=== PATIENT | female | born 1995 | race Caucasian/White ===

== ENCOUNTER 2021-08-17 18:52 | Emergency (ER) | payer OTHER, SELFPAY ==
[2021-08-17 18:56] VITALS: BP 101/66; PULSE 74; RESP 16; TEMP 36.6; O2SAT 100; BMI 24.8
--- NOTE | 2021-08-17 19:04 | ED_ITS ---
HPI - General Adult General Chief complaint: Back Pain/Injury Stated complaint: Lower back pain Time Seen by Provider: 08/17/21 18:59 Source: patient Mode of arrival: EMS Limitations: no limitations History of Present Illness HPI narrative: Patient is a 25-year-old female here for evaluation of lower back pain that is radiating down her legs. She states that it started earlier today. [place] the [place] She bent over and felt a little twinge in her back. The symptoms worsened later in the day when she was at home and once again bent over. She states she feels like she is having tingling in both of her toes in pain in her upper thighs. He did take some ibuprofen without any improvement. No fevers. No specific trauma. No falls. Did try some ibuprofen prior to arrival. Related Data Previous Rx's Medication Instructions Recorded cyclobenzaprine 10 mg tablet 10 mg PO TID PRN muscle spasm #14 08/17/21 tabs hydrocodone 5 mg-acetaminophen 325 1 tab PO Q4-6H PRN pain #14 tabs 08/17/21 mg tablet Allergies Allergy/AdvReac Type Severity Reaction Status Date / Time No Known Drug Allergies Allergy Verified 08/17/21 18:53 Review of Systems Constitutional Constitutional: Reports system reviewed and no additional complaints, except as documented Gastrointestinal Gastrointestinal: Reports system reviewed and no additional complaints, except as documented Genitourinary Genitourinary: Reports system reviewed and no additional complaints, except as documented Musculoskeletal Musculoskeletal: Reports system reviewed and no additional complaints, except as documented Integumentary/Breasts Skin/Breast: Reports system reviewed and no additional complaints, except as documented Neurologic Neurologic: Reports system reviewed and no additional complaints, except as documented Patient History Medical History Low back pain Social History Smoking Status: Unknown if ever smoked Exam Initial Vital Signs Initial Vital Signs: Vital Signs Temperature 97.8 F 08/17/21 18:56 Pulse Rate 74 08/17/21 18:56 Respiratory Rate 16 08/17/21 18:56 Blood Pressure 101/66 08/17/21 18:56 Pulse Oximetry 100 08/17/21 18:56 Oxygen Delivery Method 08/17/21 18:56 Const General: cooperative and comfortable HENMT Head: normal to inspection and normocephalic Resp Effort & Inspection: normal respiratory effort Cardio Rate: regular rate Back/Spine/Pelvis Back: normal to inspection Skin General: no rashes or lesions noted Extrem Other: Patient reports tingling to light touch in both of her lower extremities but it is equal bilateral. Course Orders Ordered: Discontinued Medications Hydrocodone Bitart/Acetaminophen (Hydrocodone/Acet 5/325 Prepack) 1 bottle MISC SEEINSTR ONE Stop: 08/17/21 20:44 Last Admin: 08/17/21 20:58 Dose: 1 bottle Documented By: EH Ketorolac Tromethamine (Ketorolac 30 Mg/Ml Vial) 30 mg IM NOW ONE Stop: 08/17/21 19:05 Last Admin: 08/17/21 19:20 Dose: Not Given Documented By: ANNE-MARIE Morphine Sulfate (Morphine 4 Mg/Ml Inj) 4 mg IM NOW ONE Stop: 08/17/21 19:05 Last Admin: 08/17/21 19:20 Dose: 4 mg Documented By: ANNE-MARIE Vital Signs Vital signs: Vital Signs - 8 hr 08/17/21 18:56 08/17/21 20:49 08/17/21 21:08 Temperature 97.8 F Pulse Rate 74 70 72 Respiratory Rate 16 16 16 Blood Pressure 101/66 104/59 L 110/60 Pulse Oximetry 100 99 99 Oxygen Delivery Method Room Air Room Air Room Air Medical Decision Making MDM Narrative Medical decision making narrative: Some improvement of symptoms after treatment here in the ER. No indication for radiologic studies. Low suspicion for fracture/cauda equina/hematoma or abscess. Was sent home with symptom treatment. She was given return precautions and follow-up instructions. She expressed understanding and agreement. Discharge Plan Departure Patient Disposition: Home Clinical Impression: Strain of lumbar region Instructions: DI for Low Back Pain Activity Restrictions/Additional Instructions: You can take the Flexeril that you are to have at home as needed. Use the pain medication is needed as well. I also recommend that you continue with anti- inflammatories such as the Motrin/ibuprofen. Be sure you are taking this with food. Also recommend that you stay active. Contact your primary doctor for a follow-up. Return to the emergency department for any new or worsening symptoms. Prescriptions: New hydrocodone-acetaminophen 5-325 mg tablet 1 tab PO Q4-6H PRN (Reason: pain) Qty: 14 0RF cyclobenzaprine 10 mg tablet 10 mg PO TID PRN (Reason: muscle spasm) Qty: 14 0RF Visit Report Forms: Patient Portal/API
[2021-08-17] MEDS: MORPHINE 4 MG/ML INJ IM (19:20)
[2021-08-17 20:49] VITALS: BP 104/59; PULSE 70; RESP 16; O2SAT 99
[2021-08-17] MEDS: HYDROCODONE/ACET 5/325 PREPACK 1 BOTTLE MISC (20:58)
[2021-08-17 21:08] VITALS: BP 110/60; PULSE 72; RESP 16; O2SAT 99
== END 2021-08-17 21:10 | disposition home or self-care (01) ==
PROVIDERS: Emergency Provider Emergency Medicine
DX: S39.012A Strain of muscle, fascia and tendon of lower back, initial encounter (principal)
CPT/HCPCS: 96372; 99283; J2270

== ENCOUNTER → 2021-08-18 15:29 | Outpatient (CLI) | payer OTHER, SELFPAY ==
--- NOTE | 2021-08-18 15:37 | DI.RAD.S_ITS ---
PROCEDURE: XR LUMBAR SPINE 2-3V INDICATIONS: acute on chronic injury yest, assess for disc dz TECHNIQUE: 3 views of the lumbar spine were acquired. COMPARISON: None. FINDINGS: Bones: 5 [id number] vertebrae are present. There is normal bony alignment. No vertebral body compression fractures. No suspicious bony lesions. Soft tissues: Overlying bowel gas pattern is normal. No suspicious soft tissue calcifications. IMPRESSION: No evidence acute bony abnormality of the lumbar spine. If clinical suspicion and/or symptoms persist, further assessment with repeat plain films, or advanced imaging (e.g., CT, MRI, or bone scan) may be helpful for further assessment. Dictated by: Roosevelt Rinaldi M.D. on 08/18/2021 at 16:54 Approved by: Roosevelt Rinaldi M.D. on 08/18/2021 at 16:55
== END ==
PROVIDERS: Referring Provider Pediatrics; Visit Provider Pediatrics
DX: M54.30 Sciatica, unspecified side (principal); M54.50 Low back pain, unspecified
CPT/HCPCS: 72100

== ENCOUNTER → 2021-12-14 | Outpatient (CLI) | payer OTHER, SELFPAY ==
--- NOTE | 2021-12-14 | DI.MRI.S_ITS ---
PROCEDURE: MR ABDOMEN WO/W CON INDICATIONS: LIVER LESION TECHNIQUE: Coronal HASTE, axial 2D FLASH in- and [id number]; axial breath-hold T2 FSE. Dynamic axial VIBE during the administration of contrast; post-contrast coronal VIBE or 2D FLASH with fat saturation from the hepatic dome to the iliac crests. Optional diffusion weighted imaging and ADC may be performed. COMPARISON: A prior report is available from outside MRI dated 12/28/2020. FINDINGS: Image quality: Motion degraded. There is also metallic artifact posteriorly causing in homogeneity in fat saturation limiting evaluation of the posterior liver and liver dome. There is also extensive gas artifact adjacent to the area of interest near the hepatic hilum. Lung bases: No basal effusion. Lungs are not well assessed on MRI. Solid organs: There is a T2 hyperintense lesion on image 4/19 measuring 11 by 11 millimeters in segment 3. It is unclear whether this corresponds any of the lesions reported on outside imaging from 2020. Imaging limitations as above render parts of the liver, especially near the hilum and posterior and dome aspects essentially nondiagnostic. Gallbladder is under distended. There is no biliary ductal dilation. No pancreatic ductal dilation no splenomegaly. No discrete adrenal nodule. No hydronephrosis. Nodes and vessels: No abdominal aortic aneurysm. No pathologic adenopathy by size criteria. The portal vein is patent. Bowel and peritoneum: Stomach and proximal duodenum are mildly distended with gas, causing extensive susceptibility artifact, without overt small bowel obstruction. No pathologic ascites. Bones and soft tissues: No acute or suspicious osseous abnormality. IMPRESSION: There is a T2 hyperintense lesion in hepatic segment 3. This is a markedly limited MRI due to multiple technical issues described above. Previously described focal nodular hyperplasia is not definitively identified in segment 8. Only the comparison report from 2020 is available. Comparison images are not available at this time. No acute abdominal pelvic pathology. Dictated by: Berto Tapia M.D. on 01/03/2022 at 9:32 Approved by: Berto Tapia M.D. on 01/03/2022 at 9:49
== END ==
LOC: MRI 13:02
PROVIDERS: PCP Registered Nurse Diabetes Educator; Referring Provider Internal Medicine Gastroenterology; Visit Provider Internal Medicine Gastroenterology
DX: K76.9 Liver disease, unspecified (principal)
CPT/HCPCS: 74183; A9579

== ENCOUNTER → 2022-04-25 16:04 | Outpatient (CLI) | payer OTHER, SELFPAY ==
--- NOTE | 2022-04-25 16:06 | DI.MRI.S_ITS ---
PROCEDURE: MR CERVICAL SPINE WO CON INDICATIONS: eval neck pain, BUE radiculopathy TECHNIQUE: Noncontrast sagittal T1 spin echo and T2 fast spin echo, sagittal STIR, foraminal oblique sagittal T2 fast spin echo, and axial gradient echo or T2 fast spin echo through the cervical spine. COMPARISON: None. FINDINGS: Image quality: Excellent. Alignment and Curvature: There is normal bony alignment. Bone Marrow: Marrow demonstrates normal overall signal. Spinal Cord: Visualized spinal cord has normal size and signal. No cerebellar tonsillar herniation. Paraspinous Soft Tissues: No paravertebral masses. Prevertebral soft tissues are normal in thickness. C1-C2: Mild to moderate degenerative changes are present. C2-C3: Normal appearance. C3-C4: Mild left foraminal stenosis. No right foraminal narrowing. No canal stenosis. C4-C5: Normal appearance. C5-C6: Moderate to severe bilateral foraminal stenosis. C6-C7: Normal appearance. C7-T1: Normal appearance. IMPRESSION: 1. Mild to moderate degenerative changes at C1-2. 2. Moderate to severe bilateral foraminal narrowing at C5-6. 3. No canal stenosis or cord signal abnormalities of the lumbar spine. Dictated by: Nisa Watson M.D. on 04/25/2022 at 17:03 Approved by: Nisa Watson M.D. on 04/25/2022 at 17:07
== END ==
PROVIDERS: PCP Registered Nurse Diabetes Educator; Referring Provider Registered Nurse Diabetes Educator; Visit Provider Registered Nurse Diabetes Educator
DX: M47.812 Spondylosis without myelopathy or radiculopathy, cervical region (principal); M48.02 Spinal stenosis, cervical region; M54.2 Cervicalgia; M54.10 Radiculopathy, site unspecified
CPT/HCPCS: 72141

== ENCOUNTER → 2022-05-16 15:03 | Outpatient (CLI) | payer OTHER, SELFPAY ==
--- NOTE | 2022-05-16 15:04 | DI.MRI.S_ITS ---
PROCEDURE: MR ABDOMEN WO/W CON INDICATIONS: Liver disease, unspecified TECHNIQUE: Coronal HASTE, axial 2D FLASH in- and [id number]; axial breath-hold T2 FSE. Dynamic axial VIBE during the administration of contrast; post-contrast coronal VIBE or 2D FLASH with fat saturation from the hepatic dome to the iliac crests. Optional diffusion weighted imaging and ADC may be performed. COMPARISON: [facility], MR, MR ABDOMEN WO/W CON, 12/14/2021, 13:39. MRI report of 12/28/2020. FINDINGS: Image quality: Excellent. Lung bases: No basal pleural effusions. Heart size is normal. Solid organs: Liver is normal in size and enhancement. Gallbladder is unremarkable. Biliary system is non dilated. Pancreas is normal in morphology. Spleen is normal in size and enhancement. No adrenal nodules. Both kidneys demonstrate normal size and enhancement, without hydronephrosis. Nodes and vessels: No retroperitoneal or mesenteric adenopathy by size criteria. Aorta and inferior vena cava are normal in size. Bowel and peritoneum: Unenhanced bowel loops are normal in caliber. No free fluid. Bones and soft tissues: No ventral hernias. Bone marrow is normal in overall signal. IMPRESSION: No liver lesion on today's exam. Previously described segment 3 lesion is not seen, nor confirmed with diffusion-weighted sequences. Previously described liver lesion at the dome is not visualized. Dictated by: Curt Osorio M.D. on 05/17/2022 at 8:58 Approved by: Curt Osorio M.D. on 05/17/2022 at 9:07
== END ==
PROVIDERS: PCP Registered Nurse Diabetes Educator; Referring Provider Internal Medicine Gastroenterology; Visit Provider Internal Medicine Gastroenterology
DX: K76.9 Liver disease, unspecified (principal)
CPT/HCPCS: 74183

== ENCOUNTER → 2022-09-28 12:08 | Outpatient (CLI) | payer OTHER, SELFPAY | PROVIDERS: Family Provider Registered Nurse Diabetes Educator; PCP Registered Nurse Diabetes Educator; Referring Provider Physical Medicine & Rehabilitation; Visit Provider Physical Medicine & Rehabilitation | DX: M54.12 Radiculopathy, cervical region (principal); R20.2 Paresthesia of skin | CPT/HCPCS: 95886; 95911 ==

== ENCOUNTER → 2023-02-16 15:12 | Outpatient (CLI) | payer OTHER, SELFPAY ==
--- NOTE | 2023-02-16 15:13 | DI.US.S_ITS ---
PROCEDURE: US OB <= 14 WEEKS FETUS INDICATIONS: Dating and viability OUTSIDE/PRIOR DATING DATA: Last menstrual period (LMP): 12/21/2022 LMP-based estimated date of delivery (JACKY): 09/27/2023 First dating scan (date and location): 02/16/2023 Estimated date of delivery (JACKY) from first dating scan: Not applicable TECHNIQUE: Real-time scanning was performed of the fetus and maternal pelvic organs, with image documentation. Endovaginal scanning was also performed to better visualize the fetus and maternal ovaries. COMPARISON: None. FINDINGS: Embryo: Single intrauterine gestational sac is seen with fetus and yolk sac noted. [place]-rump length measures 1.7 cm. Estimated gestational age based on current study is 8 weeks, 1 day. Heart rate: 168 beats per minute. Maternal organs: Ovaries are not well seen on this study. No gross adnexal mass. IMPRESSION: 1. Single live intrauterine gestation with fetus and yolk sac seen. Estimated gestational age based on current study is 8 weeks, 1 day. heart rate is 168 beats per minute. We strive to produce accurate, complete, and clear reports of imaging services. To assist us in improving patient care, this report was composed using standard report templates and voice recognition software. Therefore, it may contain abnormal punctuation, insertions and/or omissions. Occasional wrong-word or sound-alike substitutions may occur. Though we review the report and make efforts to correct it, we do recommend that the report be read carefully in proper context to recognize any text inaccuracies. Dictated by: Rodney Ochoa M.D. on 02/16/2023 at 16:58 Approved by: Rodney Ochoa M.D. on 02/16/2023 at 16:59
== END ==
PROVIDERS: Family Provider Registered Nurse Diabetes Educator; PCP Registered Nurse Diabetes Educator; Referring Provider Obstetrics & Gynecology; Visit Provider Obstetrics & Gynecology
DX: Z34.01 Encounter for supervision of normal first pregnancy, first trimester (principal); Z3A.08 8 weeks gestation of pregnancy
CPT/HCPCS: 76801

== ENCOUNTER → 2023-03-21 10:28 | Outpatient (CLI) | payer OTHER, SELFPAY ==
[2023-03-21 14:03] LABS: Urine Chlamydia NOT DETECTED; Urine N gonorrhoeae NOT DETECTED
== END ==
PROVIDERS: Family Provider Registered Nurse Diabetes Educator; PCP Registered Nurse Diabetes Educator; Visit Provider Obstetrics & Gynecology
DX: Z34.01 Encounter for supervision of normal first pregnancy, first trimester (principal); Z3A.12 12 weeks gestation of pregnancy
CPT/HCPCS: 87491; 87591

== ENCOUNTER → 2023-03-21 10:46 | Outpatient (CLI) | payer OTHER, SELFPAY ==
[2023-03-21 11:07] LABS: Add Manual Diff / Slide Review NO; Basophils Absolute Auto 100 /uL (0-100); Basophils Percent Auto 0.7 % (0-2); Eosinophils Absolute Auto 100 /uL (0-450); Hematocrit 39.6 % (36-46); Hemoglobin 13.6 g/dL (12.0-16.0); Lymphocytes Absolute Auto 2200 /uL (1100-4500); Lymphocytes Percent Auto 19.2 % (25-40); Mean Corpuscular HGB Conc 34.3 % (30-36); Mean Corpuscular Hemoglobin 29.1 PG (26-34); Mean Corpuscular Volume 84.7 fL (80-100); Monocytes Absolute Auto 900 /uL (0-900); Monocytes Percent Auto 7.5 % (3-14); Neutrophils Absolute Auto 8300 /uL (1500-7000); Neutrophils Percent Auto 71.6 % (50-75); Platelet Count 301 X10^3/uL (150-400); Red Blood Cell Count 4.67 X10^6/uL (4.0-5.2); Red Cell Distribution Width 12.3 % (11.6-14.8); White Blood Cell Count 11.6 X10^3/uL (4.5-11.0)
[2023-03-22 07:34] LABS: RPR Screen Non Reactive (Non Reactive)
[2023-03-22 10:30] LABS: Varicella IgG Antibody 226 index (Immune >165)
[2023-03-22 16:40] LABS: Hepatitis B Surface Antigen NEGATIVE s/c (NEGATIVE); Rubella Antibody IgG 47.7 IU/mL (>15)
[2023-03-22 16:52] LABS: HIV 1 & 2 Ab/Ag 4th Gen Combo NEGATIVE (NEGATIVE)
[2023-03-22 17:15] LABS: Hep C Virus Ab w/Reflex Quant NEGATIVE s/c (NEGATIVE)
== END ==
LOC: LAB 10:46
PROVIDERS: Family Provider Registered Nurse Diabetes Educator; PCP Registered Nurse Diabetes Educator; Referring Provider Obstetrics & Gynecology; Visit Provider Obstetrics & Gynecology
DX: Z34.01 Encounter for supervision of normal first pregnancy, first trimester (principal); Z3A.12 12 weeks gestation of pregnancy
CPT/HCPCS: 36415; 80055; 86787; 86803; 86850; 86900; 86901; 87389; 87491; 87591

== ENCOUNTER → 2023-04-20 15:20 | Outpatient (CLI) | payer OTHER, SELFPAY ==
[2023-04-24 22:46] LABS: AFP Value 42.7 ng/mL (.); Gest Age on Col Date 17.1 weeks (.); Insulin Dep Diabetes No (.); OSBR Risk 1IN 6110 (.); Results Report (.); Test Results *Screen Negative* (.)
== END ==
PROVIDERS: Family Provider Registered Nurse Diabetes Educator; PCP Registered Nurse Diabetes Educator; Referring Provider Obstetrics & Gynecology; Visit Provider Obstetrics & Gynecology
DX: Z34.02 Encounter for supervision of normal first pregnancy, second trimester (principal); Z3A.17 17 weeks gestation of pregnancy
CPT/HCPCS: 36415; 82105

== ENCOUNTER → 2023-05-11 14:21 | Outpatient (CLI) | payer OTHER, SELFPAY ==
--- NOTE | 2023-05-11 14:23 | DI.US.S_ITS ---
PROCEDURE: US OB >= 14 WEEKS FETUS INDICATIONS: 20 wk anatomy scan OUTSIDE/PRIOR DATING DATA: Last menstrual period (LMP): 12/21/2022. LMP-based estimated date of delivery (JACKY): 09/27/2023. First dating scan (date and location): 02/16/2023. Estimated date of delivery (JACKY) from first dating scan: 09/27/2023. The calculations are made using the ultrasound/clinical JACKY of 09/27/2023. TECHNIQUE: Real-time scanning was performed of the fetus, with image documentation and biometric measurements. Endovaginal scanning: No COMPARISON: None. FINDINGS: General: A single living intrauterine gestation is present. Presentation: Variable. Placenta: Placental position is posterior , without previa. Amniotic fluid index: 13.2 cm, normal range is 5-24 cm. Single deepest vertical pocket is 3.9 cm. heart rate: 126 beats per minute. Maternal cervical canal: 3.7 cm long. Normal lower limit is 2.5 cm. biometrics: Biparietal diameter: 5 cm, 21 weeks and 0 days Head circumference: 17.5 cm, 20 weeks and 0 days Abdominal circumference: 16 cm, 21 weeks and 1 day Femur length: 3.2 cm, 20 weeks and 0 days Clinically estimated gestational age: 20 weeks and 1 day Composite gestational age from present scan: 20 weeks and 4 days Estimated weight and percentile: 363 grams, 70th percentile Anatomic survey: Neuro: Ventricles are non-dilated at less than 10 mm. Cisterna magna is normal at 3-11 mm. Cerebellum is normal in size and morphology. Nuchal skin fold: Normal at less than 6 mm between 14-21 weeks gestational age. Face: Nose and lips, facial profile are normal. Spine: No evidence for spina bifida. Heart: 4-chambered heart is present. The ventricular outflow tracts are not well seen. Diaphragm: Diaphragm is intact. Stomach: Left-sided stomach is present. Kidneys: No hydronephrosis. Normal is less than 5 mm in 2nd trimester, less than 7 mm in 3rd trimester. Cord: 3-vessel cord has orthotopic insertion. Bladder: Normal in size. Extremities: All 4 extremities identified. IMPRESSION: 1. Single living intrauterine gestation with estimated gestational age of 20 weeks and 4 days from the present scan. 2. Normal interval growth. 3. Ventricular outflow tracts are not well seen. Remainder of the anatomy scan is within normal limits. Attention on follow-up. Dictated by: David Fox M.D. on 05/12/2023 at 10:58 Approved by: David Fox M.D. on 05/12/2023 at 11:18
== END ==
LOC: US 14:22
PROVIDERS: Family Provider Registered Nurse Diabetes Educator; PCP Registered Nurse Diabetes Educator; Referring Provider Obstetrics & Gynecology; Visit Provider Obstetrics & Gynecology
DX: Z34.02 Encounter for supervision of normal first pregnancy, second trimester (principal); Z3A.20 20 weeks gestation of pregnancy
CPT/HCPCS: 76811

== ENCOUNTER → 2023-05-30 13:22 | Outpatient (CLI) | payer OTHER, SELFPAY ==
--- NOTE | 2023-05-30 13:23 | DI.US.S_ITS ---
PROCEDURE: US OB FOLLOW UP INDICATIONS: Ventricular outflow tracts not well seen on first scan OUTSIDE/PRIOR DATING DATA: Last menstrual period (LMP): 12/21/2022. LMP-based estimated date of delivery (JACKY): 09/27/2023. First dating scan (date and location): 02/16/2023, [facility]. Estimated date of delivery (JACKY) from first dating scan: 09/27/2023. The calculations are made using the working JACKY of 09/27/2023. TECHNIQUE: Real-time scanning was performed of the fetus, with image documentation. Endovaginal scanning: Not performed COMPARISON: [facility], US, US OB >= 14 WEEKS FETUS, 05/11/2023, 14:45. Ob ultrasound 02/14/2023, 05/23/2023. FINDINGS: A single living intrauterine gestation is present. Presentation: Vertex. Placenta: Placental position is posterior, without previa. Amniotic fluid index: 17.7 cm, normal range is 5-24 cm. Single deepest vertical pocket is 7.0 cm. heart rate: 152 beats per minute. Maternal cervical canal: 3.3 cm long. Normal lower limit is 2.5 cm. Clinically estimated gestational age: 22 weeks, 6 days Four-chamber view of the heart is normal. RVOT and LVOT are normal in appearance. IMPRESSION: 1. Alberto living intrauterine at 22 weeks 6 days based on prior dating. 2. Normal placenta and amniotic fluid. 3. Normal normal appearance of the heart. Four-chamber view and cardiac outflow tracks appear normal. Approved by: Bill Velásquez M.D. on 06/06/2023 at 12:49
== END ==
LOC: US 13:22
PROVIDERS: Family Provider Registered Nurse Diabetes Educator; PCP Registered Nurse Diabetes Educator; Referring Provider Obstetrics & Gynecology; Visit Provider Obstetrics & Gynecology
DX: Z36.2 Encounter for other antenatal screening follow-up (principal); Z3A.22 22 weeks gestation of pregnancy
CPT/HCPCS: 76816

== ENCOUNTER → 2023-06-01 15:19 | Outpatient (CLI) | payer OTHER, SELFPAY ==
[2023-06-04 13:58] LABS: Candida species Negative (Negative); Gardnerella vaginalis Negative (Negative); Trichomoas vaginalis Negative (Negative)
== END ==
PROVIDERS: Family Provider Registered Nurse Diabetes Educator; PCP Registered Nurse Diabetes Educator; Visit Provider Obstetrics & Gynecology
DX: N89.8 Other specified noninflammatory disorders of vagina (principal)
CPT/HCPCS: 87480; 87510; 87660

== ENCOUNTER → 2023-06-20 11:45 | Outpatient (CLI) | payer OTHER, SELFPAY ==
[2023-06-20 13:23] LABS: Hematocrit 36.4 % (36-46); Hemoglobin 12.4 g/dL (12.0-16.0)
[2023-06-20 13:54] LABS: GTT (PREG) 1 Hour PP 50gm Dose 145 mg/dL (76-139)
== END ==
PROVIDERS: Family Provider Registered Nurse Diabetes Educator; PCP Registered Nurse Diabetes Educator; Referring Provider Obstetrics & Gynecology; Visit Provider Obstetrics & Gynecology
DX: Z34.02 Encounter for supervision of normal first pregnancy, second trimester (principal); Z3A.26 26 weeks gestation of pregnancy
CPT/HCPCS: 36415; 82950; 85014; 85018

== ENCOUNTER → 2023-06-25 09:58 | Outpatient (CLI) | payer OTHER, SELFPAY ==
[2023-06-25 12:00] LABS: Glucose Fasting Gestational 80 mg/dL (76-95)
[2023-06-25 12:08] LABS: Glucose 1 Hour Gest 143 mg/dL (76-180)
[2023-06-25 13:21] LABS: Glucose 2 Hour Gest 117 mg/dL (76-155)
[2023-06-25 13:34] LABS: Glucose Tol Interp,Gestational INTERPRETATION
[2023-06-25 14:30] LABS: Glucose 3 Hour Gest 93 mg/dL (76-140)
== END ==
PROVIDERS: Family Provider Registered Nurse Diabetes Educator; PCP Registered Nurse Diabetes Educator; Referring Provider Obstetrics & Gynecology; Visit Provider Obstetrics & Gynecology
DX: O99.810 Abnormal glucose complicating pregnancy (principal)
CPT/HCPCS: 82951; 82952

== ENCOUNTER 2023-07-27 19:22 | Outpatient (CLI) | payer OTHER, SELFPAY ==
--- NOTE | 2023-07-27 20:02 | PM.OBTRLD ---
Visit Information Visit Information Date of evaluation: 07/27/23 Primary OB Provider: Gentry Ramirez On-call OB Provider: Yandel Mason Reason for Evaluation: Yes other Comments/Additional reasons for admission: 27yo G1 at GA 31+1 weeks presenting with concern for decreased movement. Noticed baby moving less than normal today. Drank water and juice, ate a snack, laid down and performed kick counts. Noted a total of 8 movements over the course of 3 hours. Called after hours line and was advised to present for further evaluation. Denies vaginal bleeding, leakage of fluid, abdominal/pelvic pain, contractions. reportedly uncomplicated thus far. Home medications on chart review include PNV, sertraline, omeprazole. Genetic screening normal/low risk, 1h GTT normal. [facility] Medical History Squamous cell carcinoma Irregular menstrual cycle Irritable bowel syndrome Liver nodule Paresthesia of upper extremity Back pain, lumbosacral Low back pain Surgical History [place] teeth extracted Anesthesia Giant cell tumor (~2019) History of laparoscopy (~03/07/20) Family History Father Esophageal cancer Aquino's esophagus Mother Breast cancer DVT (deep venous thrombosis) Grandmother Stroke Grandmother Breast cancer Grandfather Diabetes mellitus History of heart disease Hx of CABG Family/Other Breast cancer Social History marital status: number of children: 0 household members: spouse lives independently: Yes caregiver/support person: No housing: condominium ([facility]) pets and animals: Yes (dogs) education level: vocational occupational status: employed 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 ) special michelle needs: No travel history: recent (domestic only) seatbelt use: always water heater temp set < 120 deg: Yes working smoke detector in home: Yes fire extinguisher in home: Yes carbon monox detector in home: Yes firearms in home: No do you feel safe at home: Yes Smoking Status: Never smoker second hand exposure: No alcohol intake: former (occasionally when not ) substance use type: does not use during the past year weight has: remained stable well-balanced diet: daily or most days daily servings fruits/ve-4 caffeine: Yes (rarely) Type(s) of exercise: walking frequency: 3-4 times per week Review of Systems Review of Systems ROS: Yes All systems reviewed with the patient and are negative except as otherwise documented Evaluation Evaluation Baseline heart rate: 140 Variability: Moderate (11-25) monitor accelerations: Present Monitor Decelerations: Absent Category of Tracing: Reactive Status: Category l Diagnosis, Plan/Disposition Final Diagnosis (1) Decreased movement: Status: Acute (2) with 31 completed weeks gestation: Status: Acute Plan/Disposition Plan: NST reactive with cat 1 FHT, mother now feeling baby move normally. Discharge home with return precautions for decreased movement, bleeding, signs/sxs labor. Follow-up with primary OB as scheduled. OB Disposition: home
== END 2023-07-27 20:00 | disposition home or self-care (01) ==
LOC: OB 07-31 08:12
PROVIDERS: Family Provider Registered Nurse Diabetes Educator; PCP Registered Nurse Diabetes Educator; Referring Provider Family Medicine; Visit Provider Family Medicine
DX: O36.8130 Decreased fetal movements, third trimester, not applicable or unspecified (principal); Z3A.31 31 weeks gestation of pregnancy
CPT/HCPCS: 59025; G0378; G0379

== ENCOUNTER → 2023-08-08 11:35 | Outpatient (CLI) | payer OTHER, SELFPAY ==
[2023-08-08 12:50] LABS: Alanine Aminotransferase 16 IU/L (<35); Albumin 3.6 g/dL (3.5-5.0); Albumin Globulin Ratio 1.3 (1.0-2.8); Alkaline Phosphatase 99 U/L (38-126); Aspartate Aminotransferase 23 IU/L (14-36); BUN Creatinine Ratio 18.2 (6-22); Bilirubin Total 0.4 mg/dL (0.2-1.3); Blood Urea Nitrogen 10 mg/dL (7-17); Calcium 9.1 mg/dL (8.4-10.2); Carbon Dioxide 24 mmol/L (22-32); Chloride 106 mmol/L (98-107); Estimated Glomerular Filt Rate > 60 mL/min (>60); Globulin 2.7 g/dL (1.7-4.1); Glucose 70 mg/dL (70-100); HEMOLYSIS < 15 (0-50); Potassium 4.6 mmol/L (3.4-5.1); Sodium 133 mmol/L (137-145); Total Protein 6.3 g/dL (6.3-8.2)
== END ==
PROVIDERS: Family Provider Registered Nurse Diabetes Educator; PCP Registered Nurse Diabetes Educator; Referring Provider Obstetrics & Gynecology; Visit Provider Obstetrics & Gynecology
DX: O99.713 Diseases of the skin and subcutaneous tissue complicating pregnancy, third trimester (principal); L29.9 Pruritus, unspecified
CPT/HCPCS: 36415; 80053; 82239

== ENCOUNTER 2023-08-27 10:18 | Observation (INO) | payer OTHER, SELFPAY ==
[2023-08-27 11:27] LABS: Appearance Urine UA CLEAR; Bilirubin Urine UA NEGATIVE (NEGATIVE); Color Urine UA YELLOW; Glucose Urine UA NEGATIVE (Negative); Ketones Urine UA NEGATIVE (NEGATIVE); Leukocyte Esterase Urine UA TRACE (NEGATIVE); Nitrite Urine UA NEGATIVE (Negative); Occult Blood Urine UA NEGATIVE (Negative); Protein Urine UA NEGATIVE (Negative); Urobilinogen Urine UA 0.2 E.U./dL (0.2)
[2023-08-27 12:04] LABS: Bacteria Urine Occasional (0-1); Culture Indicated Urine Cult Not Indicated; RBC Urine None Seen (0-5/HPF); Squamous Epithelial Cell Urine 1-5 /HPF (0-5/HPF); Urine Volume 10mL (spun); WBC Urine 0-1/HPF (0-5/HPF)
--- NOTE | 2023-08-27 12:39 | DI.US.S_ITS ---
PROCEDURE: US OB LIMITED INDICATIONS: cramping OUTSIDE/PRIOR DATING DATA: Last menstrual period (LMP): 12/21/2022. LMP-based estimated date of delivery (JACKY): 09/27/2023. The calculations are made using the clinical JACKY of 09/27/2023. TECHNIQUE: Real-time scanning was performed of the fetus, with image documentation. Endovaginal scanning: Not performed COMPARISON: None. FINDINGS: A single living intrauterine gestation is present. Presentation: Vertex. Placenta: Placental position is posterior, without previa. Amniotic fluid index: 18.7 cm, normal range is 5-24 cm. Single deepest vertical pocket is 6.3 cm. heart rate: 160 beats per minute. Maternal cervical canal: 5.8 cm long. Normal lower limit is 2.5 cm. Clinically estimated gestational age: 35 weeks 4 days. IMPRESSION: Single living intrauterine at 35 weeks 4 days, JACKY of 09/27/2023. Cervix measures 5.8 centimeter, and is closed. AUBREE of 18.7 centimeter. Dictated by: Curt Osorio M.D. on 08/27/2023 at 13:19 Approved by: Curt Osorio M.D. on 08/27/2023 at 13:21
--- NOTE | 2023-08-27 12:55 | P.TNLD_ITS ---
Visit Information Visit Information Date of evaluation: 08/27/23 Primary OB Provider: Gentry Ramirez Comments/Additional reasons for admission: 27yo at 35w4d here for lower abdominal cramping. The pt reports cramping for the last 3 days, relatively consistently. They are not getting stronger. She denies any vaginal bleeding or LOF. She is feeling her baby move regularly. [facility] Medical History (Updated 08/27/23 @ 12:57 by Ofe Barr MD) Squamous cell carcinoma Irregular menstrual cycle Irritable bowel syndrome Liver nodule Paresthesia of upper extremity Back pain, lumbosacral Low back pain Surgical History [place] teeth extracted Anesthesia Giant cell tumor (~2019) History of laparoscopy (~03/07/20) Family History Father Esophageal cancer Aquino's esophagus Mother Breast cancer DVT (deep venous thrombosis) Grandmother Stroke Grandmother Breast cancer Grandfather Diabetes mellitus History of heart disease Hx of CABG Family/Other Breast cancer Social History marital status: number of children: 0 household members: spouse lives independently: Yes caregiver/support person: No housing: condominium ([facility]) pets and animals: Yes (dogs) education level: vocational occupational status: employed 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 needs: No travel history: recent (domestic only) seatbelt use: always water heater temp set < 120 deg: Yes working smoke detector in home: Yes fire extinguisher in home: Yes carbon monox detector in home: Yes firearms in home: No do you feel safe at home: Yes Smoking Status: Never smoker second hand exposure: No alcohol intake: former (occasionally when not ) substance use type: does not use during the past year weight has: remained stable well-balanced diet: daily or most days daily servings fruits/ve-4 caffeine: Yes (rarely) Type(s) of exercise: walking frequency: 3-4 times per week Objective Labs Labs: Laboratory Results - last 24 hr 08/27/23 10:30 Urine Color Yellow Urine Appearance Clear Urine pH 7.0 Ur Specific [place] 1.010 Urine Protein Negative Urine Glucose (UA) Negative Urine Ketones Negative Urine Occult Blood Negative Urine Nitrate Negative Urine Bilirubin Negative Urine Urobilinogen 0.2 Ur Leukocyte Esterase Trace H Urine RBC None seen Urine WBC 0-1/hpf Ur Squamous Epith Cells 1-5 /hpf Urine Bacteria Occasional (0-1) Ur Culture Indicated? Cult not indicated Vol Urine Centrifuged 10ml (spun) Evaluation Evaluation Baseline heart rate: 130 Variability: Moderate (11-25) monitor accelerations: Present Monitor Decelerations: Absent Category of Tracing: Reactive Diagnosis, Plan/Disposition Final Diagnosis (1) Abdominal cramping: Status: Deleted (2) Abdominal cramping: Status: Acute (3) 35 weeks gestation of : Status: Acute Plan/Disposition Plan: 27yo at 35w4d here for lower abdominal cramping. NST reactive, uterine irritability with rare discrete contractions. Cervical length long. U/A without evidence of UTI. Pt feels comfortable going home, stable. Return precautions discussed. Encouraged hydration. OB Disposition: home
== END 2023-08-27 12:56 | disposition home or self-care (01) ==
PROVIDERS: Admitting Provider Obstetrics & Gynecology; Family Provider Registered Nurse Diabetes Educator; PCP Registered Nurse Diabetes Educator; Referring Provider Obstetrics & Gynecology; Visit Provider Obstetrics & Gynecology
DX: O26.893 Other specified pregnancy related conditions, third trimester (principal); R10.9 Unspecified abdominal pain; Z3A.35 35 weeks gestation of pregnancy
CPT/HCPCS: 59025; 59050; 76815; 81001; G0378; G0379

== ENCOUNTER → 2023-09-05 11:15 | Outpatient (CLI) | payer OTHER, SELFPAY ==
[2023-09-06 08:08] LABS: Strep Grp B PCR NEG for Grp B Strep
== END ==
PROVIDERS: Family Provider Registered Nurse Diabetes Educator; PCP Registered Nurse Diabetes Educator; Visit Provider Obstetrics & Gynecology
DX: Z34.03 Encounter for supervision of normal first pregnancy, third trimester (principal); Z36.85 Encounter for antenatal screening for Streptococcus B; Z3A.36 36 weeks gestation of pregnancy
CPT/HCPCS: 87653

== ENCOUNTER 2023-09-19 11:25 | Inpatient (IN) | payer OTHER, SELFPAY ==
[2023-09-19 12:49] LABS: Add Manual Diff / Slide Review NO; Basophils Absolute Auto 0 /uL (0-100); Basophils Percent Auto 0.3 % (0-2); Eosinophils Absolute Auto 100 /uL (0-450); Hemoglobin 12.4 g/dL (12.0-16.0); Lymphocytes Absolute Auto 2100 /uL (1100-4500); Lymphocytes Percent Auto 18.7 % (25-40); Mean Corpuscular HGB Conc 33.7 % (30-36); Mean Corpuscular Hemoglobin 28.7 PG (26-34); Mean Corpuscular Volume 85.4 fL (80-100); Monocytes Absolute Auto 1000 /uL (0-900); Monocytes Percent Auto 8.5 % (3-14); Neutrophils Absolute Auto 8200 /uL (1500-7000); Neutrophils Percent Auto 71.5 % (50-75); Platelet Count 239 X10^3/uL (150-400); Red Blood Cell Count 4.33 X10^6/uL (4.0-5.2); Red Cell Distribution Width 13.1 % (11.6-14.8); White Blood Cell Count 11.5 X10^3/uL (4.5-11.0)
--- NOTE | 2023-09-19 13:19 | PM.OBHP.1 ---
OB HPI Date/Time Date of admission: 09/19/23 Date Patient Seen: 09/19/23 Time Patient Seen: 13:19 History of Present Condition Chief complaint: IUP, 38+6 wks, SROM, GBS Negative : 1 Para: 0 Estimated Date of Delivery: 09/27/23 Estimated Gestational Age (weeks): 38+6 Narrative: Sharon Martinez is a 27 year old admitted now at 38+ 6 weeks gestational age after experiencing spontaneous rupture of membranes during her routine OB visit earlier this morning. Amniotic fluid was clear and rupture membranes confirmed with AmniSure. Patient's course has been largely uneventful with solid early dating and appropriate milestones throughout. She had an elevated 1 hour GDM screen but her 3 hour GTT was normal in all determinations. GBS is negative. History of Present care: good care Dating criteria: LMP confirmed by 1st trimester US Ultrasounds: normal 1st trimester US and normal mid trimester US Obstetrical complications: none Medical complications: none Preadmission Labs Blood type: O (+) positive -: Antibody screen: negative, GBS status: negative, HBsAG: negative, HIV: negative and RPR/VDLR: negative -: Chlamydia screen: not detected and Gonorrhea screen: not detected -: Rubella: immune and Varicella: immune HCT: 37.0 HCAB: negative PAP: Normal Quad screen: Normal (AFP testing negative) Cell-free DNA: Low risk male 1 hr GTT: 145 3 hr GTT: 1 hr (143), 2 hr (117) and 3 hr (93) Fasting blood glucose: 80 Prior (ies) History: N/A Evaluation Evaluation Baseline heart rate: 130 Variability: Moderate (11-25) monitor accelerations: Present Monitor Decelerations: Absent Uterine Contraction Intensity: Mild Category of Tracing: Reactive Dilation (cm): 1 Effacement (%): 85 Dilation: 1-2 cm Effacement: >/=80% station: -1 Position of cervix: mid Consistency: soft Jimenez score: 9 Non-invasive Membranes Rupture Test: positive [facility] Medical History (Updated 09/05/23 @ 11:30 by Gentry Ramirez MD) Squamous cell carcinoma Irregular menstrual cycle Irritable bowel syndrome Liver nodule Paresthesia of upper extremity Back pain, lumbosacral Low back pain Surgical History [place] teeth extracted Anesthesia Giant cell tumor (~2019) History of laparoscopy (~03/07/20) Family History Father Esophageal cancer Aquino's esophagus Mother Breast cancer DVT (deep venous thrombosis) Grandmother Stroke Grandmother Breast cancer Grandfather Diabetes mellitus History of heart disease Hx of CABG Family/Other Breast cancer Social History marital status: number of children: 0 household members: spouse lives independently: Yes caregiver/support person: No housing: condominium ([facility]) pets and animals: Yes (dogs) education level: vocational occupational status: employed 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 ) special michelle needs: No travel history: recent (domestic only) seatbelt use: always water heater temp set < 120 deg: Yes working smoke detector in home: Yes fire extinguisher in home: Yes carbon monox detector in home: Yes firearms in home: No do you feel safe at home: Yes Smoking Status: Never smoker second hand exposure: No alcohol intake: former (occasionally when not ) substance use type: does not use during the past year weight has: remained stable well-balanced diet: daily or most days daily servings fruits/ve-4 caffeine: Yes (rarely) Type(s) of exercise: walking frequency: 3-4 times per week Meds Home Medications and Allergies Home Medications Medication Instructions Recorded Confirmed Type vitamin no.167-folic acid tab PO 10/11/22 09/19/23 History 400 mcg-dha 25 mg chewable tablet (One-A-Day ) cholecalciferol (vitamin D3) 125 125 mcg PO DAILY 12/06/22 09/19/23 History mcg (5,000 unit) capsule omeprazole 40 mg capsule,delayed 40 mg PO DAILY #90 caps 03/23/23 09/19/23 Rx release ondansetron 4 mg disintegrating 4 mg PO Q6H PRN nausea and 04/09/23 09/19/23 Rx tablet vomiting #20 tabs sertraline 50 mg tablet 50 mg PO DAILY #90 tabs 05/02/23 09/19/23 Rx ondansetron 4 mg disintegrating 4 mg PO Q6H PRN nausea and 05/23/23 09/19/23 Rx tablet vomiting #30 tabs hydroxyzine HCl 25 mg tablet 25 mg PO QID PRN itching #30 tabs 08/08/23 09/19/23 Rx Allergies Allergy/AdvReac Type Severity Reaction Status Date / Time No Known Drug Allergies Allergy Unverified 09/19/23 10:55 Review of Systems Review of Systems Narrative: Problem-specific ROS positives included in HPI OB Exam Vital signs Blood Pressure: 115/64 Pulse Rate: 82 Temperature: 97.3 F HENMT Head: normal to inspection, normocephalic and atraumatic Eyes General: appearance normal, both eyes and all related structures Resp Effort & Inspection: normal respiratory effort and able to speak in complete sentences Auscultation: clear to auscultation bilaterally Cardio Rate: regular rate Rhythm: regular rhythm Heart Sounds: S1 normal, S2 normal and no murmurs Extremities Lower extremity: Yes normal to inspection GI Inspection: normal to inspection Palpation: Yes soft and Yes no hepatosplenomegaly Uterus Location (Fundal Height): 36 Presentation: vertex Estimated Weight (lbs): 8 Amniotic Fluid: clear Objective Labs 09/19/23 12:00 Labs: Laboratory Results - last 24 hr 09/19/23 12:00 WBC 11.5 H RBC 4.33 Hgb 12.4 Hct 37.0 MCV 85.4 MCH 28.7 MCHC 33.7 RDW 13.1 Plt Count 239 Neut % (Auto) 71.5 Lymph % (Auto) 18.7 L [place] % (Auto) 8.5 Eos % (Auto) 1.0 L Baso % (Auto) 0.3 Neut # (Auto) 8200 H Lymph # (Auto) 2100 [place] # (Auto) 1000 H Eos # (Auto) 100 Baso # (Auto) 0 Assessment and Plan Assessment and Plan Assessment and Plan narrative: ASSESSMENT 1. Intrauterine , 38+6 wks EGA 2. SROM, AM 09/19/2023 3. GBS negative status PLAN 1. Admit for labor and delivery 2. See admission orders Time-Based Coding :: [TOTAL MINUTES] spent with patient and on the chart (including review of chart, obtaining history, exam, reviewing outside data, placing orders, documenting exam and treatment plan, and counseling patient) on [DATE].
[2023-09-19 13:32] VITALS: BP 115/64; PULSE 82; TEMP 36.3
[2023-09-19] MEDS: miSOPROStoL 25 MCG TABLET 50 MCG PO (13:54)
--- NOTE | 2023-09-19 17:29 | PM.OBPNLAB ---
Date/Time Date Patient Seen: 09/19/23 Time Patient Seen: 17:29 Pain Control Pain control: tolerating well Pelvic Exam Dilation (cm): 1 Effacement (%): 85 station: -1 Amniotic membrane status: Ruptured Comments: SROM 1115 09/19/2023 Contractions Contractions on admission: none Contraction frequency (min): 3 Contraction pattern: Irregular Contraction phase: Resting Contraction intensity: Mild Status status: Category l Heart Rate Baseline: 135 Monitor Accelerations: Absent Monitor Decelerations: Absent Monitor Variability: Moderate Assessment and Plan Plan: begin patient augmentation Comments: Little cervical change from admission w/ PO cytotec despite the fact her uterine activity has increased significantly. After discussions with the patient will initiate pitocin augmentation. Orders placed, on-call provider aware of plan but I will be covering overnight and tomorrow.
[2023-09-19] MEDS: OXYTOCIN PREMIX 30 UNIT/500 ML PLAST..BAG IV (18:04)
[2023-09-19] MEDS: LACTATED RINGERS 1,000 ML 100 ML IV (18:04)
[2023-09-19 18:51] VITALS: BP 115/64
--- NOTE | 2023-09-20 08:03 | PM.OBPNLAB ---
Date/Time Date Patient Seen: 09/20/23 Time Patient Seen: 08:03 Pain Control Pain control: tolerating well Pelvic Exam Dilation (cm): 3 Effacement (%): 85 station: -1 Amniotic membrane status: Ruptured Contractions Pitocin rate (mU/min): 0 (Pitocin currently off so patient can eat breakfast and shower) Contraction frequency (min): 3 Contraction duration (min): 1 Contraction pattern: Irregular Contraction phase: Resting Contraction intensity: Moderate Status status: Category l Heart Rate Baseline: 135 Monitor Accelerations: Episodic Monitor Decelerations: Absent Monitor Variability: Moderate Assessment and Plan Assessment: induction ongoing Plan: continuous present management Comments: Will restart Pitocin and observe for progress into the active phase. Patient aware of plan. Contractions are still tolerable and will hold off on GRACE for now.
[2023-09-20] MEDS: ONDANSETRON 4 MG/2 ML INJ IV ×2 (08:04→18:03)
[2023-09-20] MEDS: OXYTOCIN PREMIX 30 UNIT/500 ML PLAST..BAG IV (09:14)
[2023-09-20] MEDS: LACTATED RINGERS 1,000 ML 100 ML IV ×2 (09:14→18:55)
--- NOTE | 2023-09-20 18:43 | PM.OBPNLAB ---
Date/Time Date Patient Seen: 09/20/23 Time Patient Seen: 18:44 Pain Control Pain control: tolerating well Pelvic Exam Dilation (cm): 3 Effacement (%): 85 station: -1 Amniotic membrane status: Ruptured ([place] ruptured previously; AROM main bag 1830. Increased ctx, Pit reduced) Contractions Contractions on admission: none Monitor mode: External Pitocin rate (mU/min): 12 Contraction frequency (min): 3 Contraction duration (min): 1 Contraction pattern: Irregular Contraction phase: Resting Contraction intensity: Moderate Status status: Category l Heart Rate Baseline: 14 Monitor Accelerations: Present Monitor Decelerations: Absent Monitor Variability: Moderate Assessment and Plan Assessment: induction ongoing Comments: Anticipate
--- NOTE | 2023-09-20 23:44 | PM.AN.REGBLK ---
[facility] <Hillary Rubin, DO - Last Filed: 09/20/23 23:51> Pre-procedure Procedure: Continuous Lumbar Epidural for L&D (CSE) Attending OB provider: Gentry Ramirez PMH/GINETTE narrative: 27yo in labor requesting epidural. See pre-anesthesia evaluation for further details. ASA Class: II Labs: Hct 37.0 % (36-46) 09/19/23 12:00 Plt Count 239 X10^3/uL (150-400) 09/19/23 12:00 Medications: Current Medications Generic Name Dose Route Start Last Admin Trade Name Freq PRN Reason Stop Dose Admin Carboprost Tromethamine 250 mcg 09/19/23 12:10 Carboprost 250 Mcg/Ml Ampul IM Q90M PRN Bleeding Diphenhydramine HCl 25 mg 09/20/23 23:42 Diphenhydramine 50 Mg/Ml Vial IV Q10M PRN Pruritis Ephedrine Sulfate 10 mg 09/20/23 23:42 Ephedrine 50 Mg/Ml Vial IV Q5M PRN Blood pressure decrease more than 20% of baseline. Fentanyl 50 mcg 09/19/23 12:10 Fentanyl 100 Mcg/2 Ml Inj IV Q1H PRN Pain, Moderate (4-6) Oxytocin/Lactated Ringer's 30 unit in 500 mls @ 200 mls/hr 09/19/23 12:10 Oxytocin Premix IV CONT PRN Bleeding Protocol Tranexamic Acid 1,000 mg/ 100 mls @ 600 mls/hr 09/19/23 12:10 Sodium Chloride IV NOW PRN Bleeding Lactated Ringer's 1,000 mls @ 100 mls/hr 09/19/23 12:15 09/20/23 18:55 Lactated Ringers IV 100 mls/hr CONT ELIZABETH Administration Oxytocin/Lactated Ringer's 30 unit in 500 mls @ 2 mls/hr 09/19/23 17:33 09/20/23 09:14 Oxytocin Premix IV 2 milliunit/min TITRATE ELIZABETH 2 mls/hr Administration Protocol 2 MILLIUNIT/MIN FENT 2MCG/ML BUPIV 0.125% EPI 200 mcg in 100 mls @ 6 mls/hr 09/20/23 23:45 Fentanyl/Bupiv/Ns 2mcg/Ml - 0.125% EPIDURAL CONT ELIZABETH Lidocaine HCl 20 ml 09/19/23 12:10 Lidocaine 1% 20 Ml INJ INTRA-OP PRN Post Delivery Methylergonovine Maleate 0.2 mg 09/19/23 12:10 Methylergonovine 0.2 Mg Tablet PO Q6HR PRN Heavy Bleeding Methylergonovine Maleate 0.2 mg 09/19/23 12:10 Methylergonovine 0.2 Mg/Ml Vial IM NOW PRN Bleeding Misoprostol 800 mcg 09/19/23 12:10 Misoprostol 200 Mcg Tablet CO NOW PRN Bleeding Misoprostol 400 mcg 09/19/23 12:10 Misoprostol 200 Mcg Tablet SL NOW PRN Bleeding Misoprostol 50 mcg 09/19/23 13:30 09/19/23 13:54 Misoprostol 25 Mcg Tablet PO 50 mcg Q4H ELIZABETH Administration Nalbuphine HCl 2.5 mg 09/20/23 23:42 Nalbuphine 20 Mg/Ml Ampul IV Q10M PRN Pruritis Naloxone HCl 0.2 mg 09/19/23 12:10 Naloxone 0.4 Mg/Ml Vial IV Q2MIN PRN Opiate Reversal Ondansetron HCl 4 mg 09/19/23 12:10 09/20/23 18:03 Ondansetron 4 Mg/2 Ml Inj IV 4 mg Q4HR PRN Administration Nausea And Vomiting Oxytocin 10 unit 09/19/23 12:10 Oxytocin 10 Unit/Ml Vial IM NOW PRN Bleeding Sertraline HCl 50 mg 09/21/23 09:00 Sertraline 50 Mg Tablet PO DAILY ELIZABETH Allergies: Allergies Allergy/AdvReac Type Severity Reaction Status Date / Time No Known Drug Allergies Allergy Unverified 09/19/23 10:55 Procedure Insertion date: 09/20/23 Insertion time: 23:23 Prep/Local: 1% lidocaine (Chloraprep) Interspace: L4-5 Patient position: sitting Needle: 18 gauge Hustead (27g 5 Pencan for CSE) Loss of resistance with: saline SAWYER at (cm): 6 Catheter placed at SKIN (cm): 13 Catheter in SPACE (cm): 7 Insertion: Yes CSF, No Blood, Yes Paresthesia with insertion, No Paresthesia with injection and No Test dose reaction Initial Medications TEST DOSE time: 23:26 TEST DOSE: 1.5% lidocaine with epinephrine 1:200k (mL): 3 BOLUS DOSE time: 23:27 BOLUS DOSE (mL): 2 BOLUS DOSE med: other (Bolus same as test dose; 23:22 gave intrathecal dose 0.75% Marcaine in dextrose 0.5 ml) Infusion INFUSION: 0.125% bupivacaine and with fentanyl 2 mcg/mL Initial rate (mL/hr): 8 Subsequent interventions: Time-out 23:16. Pt reported paresthesias with catheter insertion and did not thread well. Pulled out, confirmed in epidural space, and reinserted with transient paresthesia. Pump started 23:36; pt able to move BLE, reports not feeling contractions. Post-procedure Anesthesia date START: 09/20/23 Anesthesia time START: 23:16 <Julianna Haider CRNA - Last Filed: 09/21/23 12:00> Infusion Subsequent interventions: Time-out 23:16. Pt reported paresthesias with catheter insertion and did not thread well. Pulled out, confirmed in epidural space, and reinserted with transient paresthesia. Pump started 23:36; pt able to move BLE, reports not feeling contractions. 1120: Pt pushing. Top off of 5mL 2% Lidocaine and 100mcg Fentanyl. -AB 1126: Baby out, epidural stopped. -AB Post-procedure Anesthesia date END: 09/21/23 Anesthesia time END: 11:26 <Shraddha Bennett CRNA - Last Filed: 09/21/23 13:53> Post-procedure Post-procedure Anesthesia Assessment: Yes CV function: HR/BP stable, Yes Resp function: RR/sat/airway adequate, Yes Post-op hydration adequate, Yes Pain control adequate, Yes Nausea & vomiting absent, No Temperature > 36 C, Yes Mental status appropriate and Yes Anesthesia complications (None)
[2023-09-21] MEDS: ZOLPIDEM 5 MG TABLET PO (00:35)
[2023-09-21] MEDS: FENT 2MCG/ML BUPIV 0.125% EPI 200 MCG/100 ML PLAST..BAG 6 MCG EPIDURAL (05:16)
--- NOTE | 2023-09-21 09:53 | PM.OBPNLAB ---
Date/Time Date Patient Seen: 09/21/23 Time Patient Seen: 09:53 Pain Control Pain control: tolerating well and epidural Pelvic Exam Dilation (cm): 10 Effacement (%): 100 station: +2 Amniotic membrane status: Ruptured ([place] ruptured previously; AROM main bag 1829. Increased ctx, Pit reduced) Contractions Monitor mode: External Pitocin rate (mU/min): 18 Contraction frequency (min): 3 Contraction pattern: Regular Contraction phase: Resting Contraction intensity: Strong/Firm Status status: Category l Heart Rate Baseline: 130 Monitor Accelerations: Present Monitor Decelerations: Early and Episodic Monitor Variability: Moderate Assessment and Plan Assessment: induction ongoing Plan: continuous present management Comments: is at +2 station with minimal caput. BRYAN. Slightly asynclitic to the left. Will continue pushing in optimal position and anticipate .
[2023-09-21] MEDS: SERTRALINE 50 MG TABLET PO (10:06)
[2023-09-21] MEDS: LACTATED RINGERS 1,000 ML 100 ML IV (10:07)
--- NOTE | 2023-09-21 12:16 | PM.OBPRVD ---
Labor & Delivery Delivery date: 09/21/23 Intrapartal Events: Prolonged Labor > 20 hours Cervical ripening method: per misoprostal protocol Induction method: AROM Delivery augmentation: rupture of membranes Delivery monitor: external FHT and external uterine Route of delivery: and vacuum extraction (Vacuum assist for descent to perineum) Indication for instrumentation: maternal exhaustion Episiotomy description: None L&D Laceration Description: Periurethral - 1st Degree (Left, repaired w/ 4-0 CCGS) and Perineal - 2nd Degree (Repaired w/ 2-0 CCGS) Delivery repair: chromic Estimated blood loss (mL): 200 Anesthesia Type: Epidural Complications: None Narrative: Following a 4 hr. 51 minute minute 2nd stage, the patient despite vigorous pushing had descended only to +2 station. After a long latent phase and prolonged pushing, maternal exhaustion was evident and after discussion with the patient and her , the decision was made to use vacuum assist to affect descent to the perineum for spontaneous vaginal . The [email or web address] Omni cup vacuum extractor was applied at +2 station with the position BRYAN. Pelvis was judged to be adequate for vaginal . With 4 pushes, vacuum extractor was used, maximum pressures never exceeded 500 mm Hg and no pop offs occurred. The vertex descended easily to +3 station where she pushed spontaneously over an intact perineum delivering a viable and vigorous male with weight 3345 gms. (7 lbs. 6 oz.), Apgars 7/9. A single loose nuchal cord was noted at delivery but no shoulder dystocia was encountered. Skin to skin contact initiated immediately following delivery and delayed cord clamping was performed. Once the umbilical cord was doubly clamped and cut, a specimen was obtained for routine studies. The placenta was then delivered easily with gentle cord traction and suprapubic countertraction. Intravenous Pitocin was initiated immediately following delivery of the placenta and blood loss quickly brought under control with a firm fundus. Bladder was catheterized for 375 cc as well. Inspection of the placenta revealed it to be intact with an eccentric three-vessel cord insertion. Inspection of the perineum showed a small left periurethral laceration which required closure to stop bleeding. In addition the patient had a second-degree perineal laceration which was also closed. Sponge, instrument, and needle count was correct at the end of the delivery process which was well tolerated by both mother and baby. Baby 1: gender: Male Presentation: vertex Position: Left Occiput Anterior Placenta delivery description: Spontaneous Cord Vessel Description: 3 Vessels score (1 min): 7 score (5 min): 9 Plan for aftercare: Routine care
[2023-09-21] MEDS: IBUPROFEN 600 MG TABLET PO ×2 (14:28→20:43)
[2023-09-21] MEDS: DERMOPLAST SPRAY 20% 60 ML 1 SPRAY TOP (14:28)
[2023-09-21] MEDS: ACETAMINOPHEN 325 MG TABLET 650 MG PO ×2 (14:28→20:44)
[2023-09-21] MEDS: DOCUSATE 100 MG CAPSULE PO (20:43)
[2023-09-21 23:00] VITALS: BP 107/60; PULSE 83; RESP 17; TEMP 36.4
[2023-09-22] MEDS: ACETAMINOPHEN 325 MG TABLET 650 MG PO ×2 (02:25→08:14)
[2023-09-22] MEDS: IBUPROFEN 600 MG TABLET PO ×2 (02:25→08:15)
[2023-09-22] MEDS: SERTRALINE 50 MG TABLET PO (08:14)
[2023-09-22] MEDS: DOCUSATE 100 MG CAPSULE PO (08:14)
[2023-09-22 08:22] LABS: Add Manual Diff / Slide Review NO; Basophils Absolute Auto 100 /uL (0-100); Basophils Percent Auto 0.4 % (0-2); Eosinophils Absolute Auto 200 /uL (0-450); Eosinophils Percent Auto 1.1 % (2-4); Hemoglobin 10.8 g/dL (12.0-16.0); Lymphocytes Absolute Auto 2200 /uL (1100-4500); Lymphocytes Percent Auto 15.9 % (25-40); Mean Corpuscular HGB Conc 33.6 % (30-36); Mean Corpuscular Hemoglobin 29.2 PG (26-34); Mean Corpuscular Volume 86.7 fL (80-100); Monocytes Absolute Auto 900 /uL (0-900); Monocytes Percent Auto 6.7 % (3-14); Neutrophils Absolute Auto 10700 /uL (1500-7000); Neutrophils Percent Auto 75.9 % (50-75); Platelet Count 184 X10^3/uL (150-400); Red Blood Cell Count 3.69 X10^6/uL (4.0-5.2); Red Cell Distribution Width 13.1 % (11.6-14.8); White Blood Cell Count 14.1 X10^3/uL (4.5-11.0)
--- NOTE | 2023-09-22 10:16 | PM.OBDS.1 ---
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: Discharge provider: Gentry Ramirez MD Summary Hospital Course Date Patient Seen: 09/22/23 Time Patient Seen: 10:16 Time Spent with Patient Time attestation: Total time spent providing and/or coordinating discharge services: Objective Labs 09/22/23 08:08 Labs: Laboratory Results - last 24 hr 09/22/23 08:08 WBC 14.1 H RBC 3.69 L Hgb 10.8 L Hct 32.0 L MCV 86.7 MCH 29.2 MCHC 33.6 RDW 13.1 Plt Count 184 Neut % (Auto) 75.9 H Lymph % (Auto) 15.9 L [place] % (Auto) 6.7 Eos % (Auto) 1.1 L Baso % (Auto) 0.4 Neut # (Auto) 63919 H Lymph # (Auto) 2200 [place] # (Auto) 900 Eos # (Auto) 200 Baso # (Auto) 100 Discharge Plan Discharge Plan Patient Disposition: Home Provider Discharge Comment: Review the written instructions you received when you were discharged from the hospital. Your follow-up appointment will be scheduled for 6 weeks after your delivery and we look forward to seeing you then. If however in the meanwhile you have any questions, concerns, other issues, please contact the office either by phone at [phone], or via the patient portal. Discharge orders & Medications Prescriptions: New ibuprofen 600 mg Tablet 600 mg PO Q6HR PRN (Reason: Pain, Mild (1-3)) Qty: 30 2RF Continued omeprazole 40 mg capsule,delayed release(DR/EC) 40 mg PO DAILY Qty: 90 2RF ondansetron 4 mg tablet,disintegrating 4 mg PO Q6H PRN (Reason: nausea and vomiting) Qty: 20 1RF sertraline 50 mg tablet 50 mg PO DAILY Qty: 90 1RF ondansetron 4 mg tablet,disintegrating 4 mg PO Q6H PRN (Reason: nausea and vomiting) Qty: 30 1RF hydroxyzine HCl 25 mg tablet 25 mg PO QID PRN (Reason: itching) Qty: 30 0RF One-A-Day 400 mcg- 25 mg tablet,chewable PO cholecalciferol (vitamin D3) 125 mcg (5,000 unit) capsule 125 mcg PO DAILY Follow up/Referrals: Pascual Guan ARNP [Primary Care Provider] - Gentry Ramirez MD [Physician] - Discharge Health Status Multidrug resistant organism: No MDRO Diet/Activity/Treatments Diet: Diet as Tolerated Activity: As tolerated Other treatments: [id number] Tylenol may be used for additional pain relief. Qefc-sph-wcdhouz stool softeners and/or MiraLax may be used as needed for constipation. Skin/Wound/Dressing Care Report to your healthcare provider any signs of infection, such as:: chills, fever, increased pain, unusual drainage and unusual redness Dressing: N/A Visit Report/Discharge Packet Instructions: DI for Labor and Delivery, Vaginal , DI for and Nipple Soreness Discharge Data Primary Care Provider: Pascual Guan
== END 2023-09-22 12:03 | disposition home or self-care (01) | DRG 807 ==
PROVIDERS: Admitting Provider Obstetrics & Gynecology; Family Provider Registered Nurse Diabetes Educator; PCP Registered Nurse Diabetes Educator; Referring Provider Obstetrics & Gynecology; Visit Provider Obstetrics & Gynecology
DX: O42.12 Full-term premature rupture of membranes, onset of labor more than 24 hours following rupture (principal); Z37.0 Single live birth; O70.1 Second degree perineal laceration during delivery; Z3A.38 38 weeks gestation of pregnancy; O76 Abnormality in fetal heart rate and rhythm complicating labor and delivery; O63.1 Prolonged second stage (of labor); O71.82 Other specified trauma to perineum and vulva; O75.81 Maternal exhaustion complicating labor and delivery
CPT/HCPCS: 36415; 59050; 59200; 84112; 85025; 86850; 86900; 86901; G0379; J2405; J2590; J3010

== ENCOUNTER → 2024-05-28 12:45 | Outpatient (CLI) | payer OTHER, SELFPAY ==
--- NOTE | 2024-05-28 12:47 | DI.MRI.S_ITS ---
PROCEDURE: MR CERVICAL SPINE WO CON INDICATIONS: reeval TECHNIQUE: Noncontrast sagittal T1 spin echo and T2 fast spin echo, sagittal STIR, foraminal oblique sagittal T2 fast spin echo, and axial gradient echo or T2 fast spin echo through the cervical spine. COMPARISON: [facility], MR, MR CERVICAL SPINE WO CON, 04/25/2022, 16:26. FINDINGS: Image quality: Excellent. Alignment and Curvature: There is overall straightening of the normal cervical lordosis. No focal AP alignment abnormality is seen. Bone Marrow: Marrow demonstrates normal overall signal. Spinal Cord: Visualized spinal cord has normal size and signal. No cerebellar tonsillar herniation. Paraspinous Soft Tissues: No paravertebral masses. Prevertebral soft tissues are normal in thickness. C2-C3: Normal appearance. C3-C4: The disc height and disk signal are well-preserved. Mild disc osteophyte complex is seen, which is eccentric to the left. There is [id number] left-sided and no right-sided neural foraminal narrowing. No central canal narrowing is seen. When comparison is made with the prior images, these findings are similar. C4-C5: The disc height and disk signal are well-preserved. A mild degree of generalized disc osteophyte complex is seen. There is moderate left-sided and [id number]-iy-[id number] right-sided neural foraminal narrowing. No significant central canal narrowing is seen. There is slight progression compared to the prior. C5-C6: The disc height and disk signal are relatively well-preserved. A mild degree of generalized disc osteophyte complex is seen. Mild facet joint hypertrophy is seen. Moderate bilateral neural foraminal narrowing is seen. No central canal narrowing is seen. When comparison is made with the prior images, these findings are similar. C6-C7: No significant abnormality is seen. C7-T1: Normal appearance. IMPRESSION: Multiple levels of cervical spine degenerative change can be seen, which are overall worst at the C5-C6 level. Mild interval progression of degenerative change can be seen at the C4-C5 level, compared to 2022. Dictated by: Silas Stokes M.D. on 05/28/2024 at 16:02 Approved by: Silas Stokes M.D. on 05/28/2024 at 16:06
--- NOTE | 2024-05-28 13:35 | DI.RAD.S_ITS ---
PROCEDURE: XR LUMBAR SPINE MIN 4V INDICATIONS: eval LBP TECHNIQUE: 5 views of the lumbar spine were acquired, including bilateral oblique views. COMPARISON: [facility], CR, XR LUMBAR SPINE 2-3V, 08/18/2021, 15:26. FINDINGS: Bones: 5 nonrib-bearing vertebrae are present. There is normal bony alignment. No vertebral body compression fractures. No suspicious bony lesions. Soft tissues: Overlying bowel gas pattern is normal. No suspicious soft tissue calcifications. Oblique images: No pars defects. IMPRESSION: No acute bony abnormality. No significant degenerative change. Dictated by: Curt Osorio M.D. on 05/28/2024 at 15:53 Approved by: Curt Osorio M.D. on 05/28/2024 at 15:53
== END ==
PROVIDERS: Family Provider Registered Nurse Diabetes Educator; PCP Registered Nurse Diabetes Educator; Referring Provider Registered Nurse Diabetes Educator; Visit Provider Registered Nurse Diabetes Educator
DX: M47.22 Other spondylosis with radiculopathy, cervical region (principal); M54.17 Radiculopathy, lumbosacral region; M54.50 Low back pain, unspecified; M48.02 Spinal stenosis, cervical region
CPT/HCPCS: 72110; 72141

== ENCOUNTER → 2024-08-26 11:06 | Outpatient (CLI) | payer OTHER, SELFPAY ==
--- NOTE | 2024-08-26 11:10 | DI.MRI.S_ITS ---
PROCEDURE: MR LUMBAR SPINE WO CON INDICATIONS: further eval LBP TECHNIQUE: Noncontrast sagittal T1 spin echo and T2 fast echo, sagittal STIR, and T2 fast spin echo through the lumbar spine. In cases with scoliosis, additional coronal T2 fast spin echo may be performed. COMPARISON: None. FINDINGS: Image quality: Excellent. Alignment and Curvature: There is normal bony alignment. Bone Marrow: Marrow is of normal overall signal. No acute vertebral body compression fractures. Spinal Cord: Conus medullaris terminates at the L1 level. Visualized cord demonstrates normal signal and size. Paraspinous Soft Tissues: No paravertebral masses. T12-L1: Normal appearance. L1-L2: Normal appearance. L2-L3: Normal appearance. L3-L4: There is bilateral facet arthropathy and mild ligamentum flavum thickening, without spinal stenosis L4-L5: Mild bilateral facet arthropathy and ligamentum flavum thickening, without spinal stenosis L5-S1: There is a disc bulge with probable superimposed posterior central herniation with superior migration to the infra pedicular level. This measures 1.8 cm in craniocaudal extent and 3 millimeter in AP diameter. There is no associated spinal stenosis. There is also underlying epidural lipomatosis at L5-S1. IMPRESSION: 1. There is a small disc herniation at L5-S1 as well as mild degenerative changes at L3-L5, without significant spinal stenosis. 2. No acute osseous lesions seen. Dictated by: Ritesh Gonzáles M.D. on 08/26/2024 at 20:27 Approved by: Ritesh Gonzáles M.D. on 08/26/2024 at 20:34
== END ==
PROVIDERS: Family Provider Registered Nurse Diabetes Educator; PCP Registered Nurse Diabetes Educator; Referring Provider Registered Nurse Diabetes Educator; Visit Provider Registered Nurse Diabetes Educator
DX: M51.17 Intervertebral disc disorders with radiculopathy, lumbosacral region (principal); M47.26 Other spondylosis with radiculopathy, lumbar region; M54.50 Low back pain, unspecified
CPT/HCPCS: 72148

== ENCOUNTER → 2024-11-14 10:34 | Outpatient (CLI) | payer OTHER, SELFPAY ==
[2024-11-14 11:50] LABS: Add Manual Diff / Slide Review NO; Hematocrit 39.4 % (36-46); Hemoglobin 13.5 g/dL (12.0-16.0); Lymphocytes Absolute Auto 2000 /uL (1100-4500); Mean Corpuscular HGB Conc 34.2 % (30-36); Mean Corpuscular Hemoglobin 29.4 PG (26-34); Mean Corpuscular Volume 85.9 fL (80-100); Platelet Count 266 X10^3/uL (150-400)
[2024-11-14 12:03] LABS: Natera Collection Specimen Collected
[2024-11-14 12:50] LABS: Hepatitis B Surface Antigen NEGATIVE s/c (NEGATIVE)
[2024-11-14 13:03] LABS: HIV 1 & 2 Ab/Ag 4th Gen Combo NEGATIVE (NEGATIVE); Hep C Virus Ab w/Reflex Quant NEGATIVE s/c (NEGATIVE)
== END ==
PROVIDERS: Obstetrics & Gynecology; PCP Registered Nurse Diabetes Educator; Referring Provider Obstetrics & Gynecology; Visit Provider Obstetrics & Gynecology
DX: Z34.81 Encounter for supervision of other normal pregnancy, first trimester (principal)
CPT/HCPCS: 36415; 80055; 86787; 86803; 86850; 86900; 86901; 87086; 87389

== ENCOUNTER → 2024-11-28 08:57 | Outpatient (CLI) | payer OTHER, SELFPAY | PROVIDERS: PCP Registered Nurse Diabetes Educator; Visit Provider Obstetrics & Gynecology | DX: R31.9 Hematuria, unspecified (principal); R80.9 Proteinuria, unspecified | CPT/HCPCS: 87086 ==

== ENCOUNTER → 2024-12-23 09:24 | Outpatient (CLI) | payer OTHER, SELFPAY | PROVIDERS: PCP Registered Nurse Diabetes Educator; Referring Provider Registered Nurse Diabetes Educator; Visit Provider Obstetrics & Gynecology | DX: Z34.82 Encounter for supervision of other normal pregnancy, second trimester (principal) | CPT/HCPCS: 36415; 82105 ==

== ENCOUNTER → 2025-01-20 08:58 | Outpatient (CLI) | payer OTHER, SELFPAY ==
--- NOTE | 2025-01-20 08:59 | DI.US.S_ITS ---
PROCEDURE: US OB >= 14 WEEKS FETUS INDICATIONS: ANATOMY OUTSIDE/PRIOR DATING DATA: Working JACKY is 06/12/2025 TECHNIQUE: Real-time scanning was performed of the fetus, with image documentation and biometric measurements. COMPARISON: [facility], US, OB <= 14 WEEKS FETUS, 10/30/2024, 11:33. FINDINGS: General: A single living intrauterine gestation is present. Presentation: Vertex. Placenta: Placental position is posterior , without previa. Amniotic fluid index: 18.6 cm, normal range is 5-24 cm. Single deepest vertical pocket is 5.8 cm. heart rate: 139 beats per minute. Deceleration to 46 BPM transiently in the middle of the study Maternal cervical canal: 3.6 cm long. Normal lower limit is 2.5 cm. biometrics: Biparietal diameter: 4.8 cm 20 weeks and 3 days Head circumference: 17.1 cm 19 weeks and 5 days Abdominal circumference: 15.5 cm, 20 weeks and 4 days Femur length: 3.4 cm 20 weeks and 3 days Clinically estimated gestational age: 19 weeks and 4 days Composite gestational age from present scan: 20 weeks and 2 days Estimated weight and percentile: 365 g 91% Anatomic survey: Neuro: Ventricles are non-dilated at less than 10 mm. Cisterna magna is normal at 3-11 mm. Cerebellum is normal in size and morphology. Nuchal skin fold: Normal at less than 6 mm between 14-21 weeks gestational age. Face: Facial structures likely within normal limits, though portions only partially seen, including nasal bone Spine: No evidence for spina bifida. Heart: 4-chambered heart is present, with normal ventricular outflow tracts. Diaphragm: Diaphragm is intact. Stomach: Left-sided stomach is present. Kidneys: No hydronephrosis. Normal is less than 5 mm in 2nd trimester, less than 7 mm in 3rd trimester. Cord: 3-vessel cord has orthotopic insertion. Bladder: Normal in size. Extremities: All 4 extremities identified. IMPRESSION: Facial structures not fully seen. EFW at the 91 percentile, slightly greater than expected. Transit deceleration to 46 BPM in the middle of the study. Normal cardiac motion and heart rate otherwise. Short interval follow-up imaging recommended. Normal AUBREE. Vertex presentation Dictated by: Berto Tapia M.D. on 01/20/2025 at 10:46 Approved by: eBrto Tapia M.D. on 01/20/2025 at 10:52
== END ==
PROVIDERS: PCP Registered Nurse Diabetes Educator; Referring Provider Registered Nurse Diabetes Educator; Visit Provider Obstetrics & Gynecology
DX: Z34.82 Encounter for supervision of other normal pregnancy, second trimester (principal); Z3A.19 19 weeks gestation of pregnancy
CPT/HCPCS: 76811

== ENCOUNTER → 2025-02-11 10:38 | Outpatient (CLI) | payer OTHER, SELFPAY ==
--- NOTE | 2025-02-11 10:39 | DI.US.S_ITS ---
PROCEDURE: US OB FOLLOW UP INDICATIONS: FACE/NOSE LIPS/PROFILE/ORBITS NWS. FHR DECEL. OUTSIDE/PRIOR DATING DATA: Working JACKY 06/12/2025 TECHNIQUE: Real-time scanning was performed of the fetus, with image documentation and biometric measurements. Endovaginal scanning: Not obtained COMPARISON: [facility], OB FOLLOW UP, 05/30/2023, 13:41. [facility], OB >= 14 WEEKS FETUS, 01/20/2025, 9:12. FINDINGS: General: A single living intrauterine gestation is present. Presentation: Breech. Placenta: Placental position is posterior , without previa. Amniotic fluid index: 16.5 cm, normal range is 5-24 cm. Single deepest vertical pocket is 6.5 cm. heart rate: 145 beats per minute. Maternal cervical canal: 4.3 cm long. Normal lower limit is 2.5 cm. biometrics: Clinically estimated gestational age: 22 weeks 5 days Other: Profile, face, nose and lips as well as orbits are within normal limits. IMPRESSION: Single live intrauterine with gestational age of 22 weeks 5 days. Previous poorly visualized anatomic structures are within normal limits. We strive to produce accurate, complete, and clear reports of imaging services. To assist us in improving patient care, this report was composed using standard report templates and voice recognition software. Therefore, it may contain abnormal punctuation, insertions and/or omissions. Occasional wrong-word or sound-alike substitutions may occur. Though we review the report and make efforts to correct it, we do recommend that the report be read carefully in proper context to recognize any text inaccuracies. Dictated by: Kerry Austin M.D. on 02/12/2025 at 16:34 Approved by: Kerry Austin M.D. on 02/12/2025 at 16:35
== END ==
LOC: US 10:39
PROVIDERS: PCP Registered Nurse Diabetes Educator; Referring Provider Obstetrics & Gynecology; Visit Provider Obstetrics & Gynecology
DX: Z34.82 Encounter for supervision of other normal pregnancy, second trimester (principal); Z3A.22 22 weeks gestation of pregnancy
CPT/HCPCS: 76816